=== PATIENT | female | born 1990 | race Caucasian/White ===

== ENCOUNTER 2022-02-04 12:01 | Outpatient (CLI) | payer BC, SELFPAY | END 2022-02-04 12:02 | disposition home or self-care (01) | LOC: NFLDREF 12:02 | PROVIDERS: Visit Provider Physician Assistant | DX: Z30.432 Encounter for removal of intrauterine contraceptive device (principal); E03.9 Hypothyroidism, unspecified; Z12.4 Encounter for screening for malignant neoplasm of cervix | CPT/HCPCS: 84443; 87624; 88175 ==

== ENCOUNTER 2022-08-31 14:57 | Outpatient (CLI) | payer OTHER, SELFPAY ==
--- NOTE | 2022-08-31 15:00 | CRLHL7_ITS ---
For Patients: As a result of the Century Cures Act, medical imaging exams and procedure reports are released immediately into your electronic medical record. You may view this report before your referring provider. If you have questions, please contact your health care provider. INDICATION: First trimester scan, establish dates. COMPARISON: None. TECHNIQUE: Real-time albarran-scale imaging of the pelvis was performed. FINDINGS: Sonographic imaging demonstrates a single living intrauterine gestation. The embryo demonstrates a regular cardiac rate measuring 143 beats per minute. The embryo`s crown-rump length measurement of 1.0 cm corresponds to a gestational age of 7 weeks 1 day with a sonographic due date of April 18, 2023. There is a normal-appearing yolk sac measuring 3 mm. There are no gross abnormalities noted within the embryo at this early state of development. The placenta has not yet developed. The gestational sac has a normal appearance. Questionable minimal perigestational hemorrhage along the left lateral aspect of the gestational sac measuring up to 9 mm. The amount of fluid within the sac appears appropriate for gestational age. The cervix is closed. The myometrium appears normal. The ovaries are of normal size. The right ovary measures 2.8 x 2.0 x 2.0 cm and contains a corpus luteum cyst of measuring 2.3 x 1.6 x 1.7 cm. The left ovary measures 2.7 x 1.2 x 1.2 cm. There are no suspicious fluid collections noted in the cul-de-sac. IMPRESSION: Normal first trimester OB ultrasound exam. Gestational age calculated at 7 weeks 1 day with a sonographic due date of April 18, 2023. Dictated by Braulio Chu MD @ 08/31/2022 5:53:20 PM (Electronically Signed)
== END 2022-08-31 14:58 | disposition home or self-care (01) ==
PROVIDERS: PCP Physician Assistant; Visit Provider Registered Nurse
DX: Z34.91 Encounter for supervision of normal pregnancy, unspecified, first trimester (principal); Z3A.08 8 weeks gestation of pregnancy
CPT/HCPCS: 76817; 84439; 84443; 86592; 86703; 86762; 86787; 86803; 86850; 86900; 86901; 87086; 87340; 87491; 87591

== ENCOUNTER 2022-08-31 16:54 | Outpatient (CLI) | payer OTHER, SELFPAY ==
[2022-08-31 20:35] LABS: Free T4 Free Thyroxine* 0.82 ng/dL (0.70-1.85)
[2022-08-31 20:50] LABS: Hepatitis B Surface Antigen* Negative (Negative)
[2022-08-31 21:00] LABS: HIV 1/2/P24 Combo Screen* Negative (Negative)
[2022-08-31 21:08] LABS: Hepatitis C Virus Antibody* Negative (Negative)
[2022-08-31 21:25] LABS: Chlamydia DNA Amplified* NOT DETECTED (No Detected); GC DNA Amplified* NOT DETECTED (No Detected)
[2022-09-02 23:11] LABS: Rapid Plasma Reagin (RPR) Non Reactive (Non Reactive)
[2022-09-03 00:15] LABS: Rubella Antibody IgG 74.5 IU/mL
== END 2022-08-31 16:55 | disposition home or self-care (01) ==
PROVIDERS: PCP Physician Assistant; Visit Provider Registered Nurse
DX: Z34.91 Encounter for supervision of normal pregnancy, unspecified, first trimester (principal); Z3A.08 8 weeks gestation of pregnancy
CPT/HCPCS: 84439; 84443; 86592; 86703; 86762; 86787; 86803; 86850; 86900; 86901; 87086; 87340; 87491; 87591

== ENCOUNTER 2023-01-27 08:38 | Outpatient (CLI) | payer OTHER, SELFPAY | END 2023-01-27 08:39 | disposition home or self-care (01) | PROVIDERS: PCP Physician Assistant; Visit Provider Obstetrics & Gynecology | DX: Z34.93 Encounter for supervision of normal pregnancy, unspecified, third trimester (principal); Z3A.29 29 weeks gestation of pregnancy | CPT/HCPCS: 84439; 84443; 86592 ==

== ENCOUNTER 2023-01-27 09:12 | Outpatient (CLI) | payer OTHER, SELFPAY ==
--- NOTE | 2023-01-27 09:15 | CRLHL7_ITS ---
For Patients: As a result of the Century Cures Act, medical imaging exams and procedure reports are released immediately into your electronic medical record. You may view this report before your referring provider. If you have questions, please contact your health care provider. INDICATION: Third trimester scan, evaluate growth. Follow-up placental location. COMPARISON: 11/30/2022 TECHNIQUE: Real time albarran scale imaging of the fetus was performed. FINDINGS: Sonographic imaging demonstrates a single living intrauterine gestation. Fetus demonstrates a regular cardiac rate of 148 beats per minute. Fetus has a vertex position. The placenta lies anteriorly without evidence of placenta previa. The edge of the placenta is located 6.0 cm from the internal cervical os. Amniotic fluid volume appears normal and there is a single deepest vertical pocket: 6.1 cm. The estimated weight is 1335gm which lies at the 63rd %. On the prior OB ultrasound exam dated 11/30/2022 the estimated weight was at the 86th%. BPD 90th percentile. HC 54th percentile. AC 55th percentile. FL 55th percentile. The HC/AC ratio measures 1.10 range (0.98-1.20). IMPRESSION: Anterior placenta located 6 cm from the internal cervical os. No previa. Sonographic gestational age 29 weeks 3 days and sonographic due date 04/11/2023. Sonographic age is 1 week ahead of the clinical age. Estimated weight 63rd percentile. Abdominal circumference 55th percentile. Dictated by Josse Jernigan MD @ 01/27/2023 11:45:18 AM (Electronically Signed)
== END 2023-01-27 09:13 | disposition home or self-care (01) ==
LOC: US 09:13
PROVIDERS: PCP Physician Assistant; Visit Provider Registered Nurse
DX: O44.43 Low lying placenta NOS or without hemorrhage, third trimester (principal); Z3A.29 29 weeks gestation of pregnancy
CPT/HCPCS: 76816; 84439; 84443

== ENCOUNTER 2023-02-02 08:34 | Outpatient (CLI) | payer OTHER, SELFPAY | END 2023-02-02 08:35 | disposition home or self-care (01) | LOC: NFLDREF 02-03 08:12 | PROVIDERS: PCP Physician Assistant; Referring Provider Physician Assistant; Visit Provider Obstetrics & Gynecology | DX: R73.09 Other abnormal glucose (principal) | CPT/HCPCS: 82951; 82952 ==

== ENCOUNTER 2023-03-22 16:06 | Outpatient (CLI) | payer OTHER, SELFPAY ==
[2023-03-23 17:58] LABS: Strep B DNA Probe POSITIVE (Negative)
[2023-03-27 21:35] LABS: Strep B Pen/Amox Allergy No
== END 2023-03-22 16:07 | disposition home or self-care (01) ==
LOC: NFLDREF 16:07
PROVIDERS: PCP Physician Assistant; Visit Provider Registered Nurse
DX: Z34.90 Encounter for supervision of normal pregnancy, unspecified, unspecified trimester (principal)
CPT/HCPCS: 87081; 87653

== ENCOUNTER 2023-04-17 15:57 | Inpatient (IN) | payer OTHER, SELFPAY ==
[2023-04-17 16:28] VITALS: BMI 32.0
[2023-04-17 16:48] VITALS: BP 118/72; PULSE 87; RESP 18; TEMP 37
[2023-04-17 16:49] VITALS: PULSE 99; O2SAT 98
[2023-04-17 17:03] LABS: Basophils Percent Auto 0.2 % (0.0-3.0); Eosinophils Percent Auto 0.9 % (0.0-7.0); Hematocrit 35.9 % (33.0-51.0); Hemoglobin* 12.2 gm/dL (12.0-16.0); Immature Granulocytes Pct Auto 0.3 %; Lymphocytes Percent Auto 17.5 % (20-44); Mean Corpuscular HGB Conc 34 gm/dL (32-36); Mean Corpuscular Hemoglobin 31 pg (26-34); Mean Corpuscular Volume 90 fL (80-100); Monocytes Percent Auto 5.6 % (0.0-11.0); Neutrophils Percent Auto 75.5 % (42.0-72.0); Platelet Count* 195 K/uL (140-440); RDW Coefficient of Variation % 12.8 % (11.5-15.5); White Blood Count* 11.67 K/uL (4.50-11.00)
[2023-04-17 17:04] LABS: Slide Review Reflex No
--- NOTE | 2023-04-17 17:29 | P.LDBA_ITS ---
Subjective History of Present Illness Time Seen by Provider: 17:29 Date Seen: 04/17/23 Narrative: Patient is being admitted to Labor and Delivery for elective IOL. She is a 32 year old at 39 6/7 weeks gestation. Her full history and physical was dictated by Dr. Connolly on 03/28/2023. Please see this for details. Specific Issues/Plans : James. Son: Sammy. Baby: Girl! GBS POSITIVE. Ampicillin in labor. 1. Hypothyroidism. 75 mcg levothyroxine. TSH and free T4 each trimester. * 08/31/2022: TSH 2.330, free T4 0.82 * 01/27/2023: TSH: 2.410, free T4 0.80 2. Low-lying placenta at 20 weeks. 1.6 cm from internal os. RESOLVED at 28wks. * F/U USN at 28 weeks01/27/23: Vtx. SDP 6.1cm. Placenta 6.1cm from the cervical os. EFW: 1335gm, 2#15oz., 63%. BPD 90%, HC 55%, AC 54%, FL 55%. 3. Elevated 1hr GTT 01/27/23: 152 * 3hr GTT: FBS elevated only, no GDM! Tdap: Given, 02/09/23 Flu: Completed COVID: Completed and boosted x2 including bivalent booster OB - Problem Based A/P Additional Plan (1) Elective induction of labor planned: Status: Acute Plan: 1. Cook catheter in place, wll plan to start IV oxytocin at midnight. Plan 1. Cook catheter in place, will plan to start IV oxytocin at midnight. 2. GBS positive, will start antibiotic prophylaxis, once we start IV Oxytocin. 3. Patient plans to get epidural for pain management. OB Exam Physical Exam Vital signs: Temp Pulse Resp BP Pulse Ox 98.6 F 87 18 118/72 98 04/17/23 16:48 04/17/23 16:48 04/17/23 16:48 04/17/23 16:48 04/17/23 16:49 Detailed Labor and Delivery Exam Patient Gravid: Yes Dilation (cm): 1 Effacement (%): 30 Cervix position: anterior Consistency: soft Tachysystole: No Contraction intensity: Mild Fetus (Single) Station: -3 Amniotic Membrane Status: intact Heart Rate Baseline: 125 Monitor Accelerations: Present Monitor Decelerations: None Prison Variability: Moderate (6-25)
[2023-04-17 19:19] VITALS: BP 122/83; PULSE 88; RESP 16; TEMP 37.1
[2023-04-17] MEDS: MORPHINE 10 MG/ML inj IM (20:15)
[2023-04-17] MEDS: hydrOXYzine pamoate 25 MG CAPSULE 100 MG PO (20:15)
[2023-04-18] VITALS (29 sets, daily range): BP systolic 96–134; BP diastolic 53–80; PULSE 76–95; RESP 16–20; TEMP 36.3–36.6; O2SAT 92–100
[2023-04-18] MEDS: LACTATED RINGERS 1000 ML 1,000 ML 125 ML IV (00:18)
[2023-04-18] MEDS: AMPICILLIN 2 GM in 0.9 % SODIUM CHLORIDE Mini-bag 100 ML IVPB (00:19)
[2023-04-18] MEDS: OXYTOCIN 30 unit/500 ML in NS 30 UNIT/500 ML BAG IVPB (00:29)
[2023-04-18] MEDS: AMPICILLIN 1 GM in 0.9 % SODIUM CHLORIDE Mini-bag 100 ML IVPB (04:16)
[2023-04-18] MEDS: LACTATED RINGERS 1000 ML 1,000 ML 999 ML IV (07:04)
[2023-04-18] MEDS: LIDOCAINE 1 % PF 30 ML INJECTION (07:26)
[2023-04-18] MEDS: IBUPROFEN 600 MG TABLET PO (08:10)
--- NOTE | 2023-04-18 08:11 | W.PM.VAGDEL1 ---
Procedure Delivery date: 04/18/23 Procedure Done: Global Intrapartal Events: Labor Induction Delivery augmentation: pitocin Delivery monitor: external FHT Route of delivery: Narrative: Alissa is a 32 year-old G3 P 90047 admitted on 04/17/2023 and 39w6d gestation for elective induction of labor. Cervical exam on admission was 1cm/30 % effaced/-3 station with membranes intact membrane in vertex presentation. Contractions were every 3 minutes. heart rate demonstrated baseline 120 bpm with moderate variability, + accelerations, - decelerations; a category I tracing. GBS +, received ampicillin antibiotics for prophylaxis starting at 0000 on 04/18/2023. Cook cath in 60cc/60cc @ 1745 and removed @ 0550 SROM occurred at 0706 on 04/18/2023 with clear fluid. Labor Analgesia: None. Patient reached complete and involuntary pushing prior to requested epidural placment. Pitocin: Yes. Titrating pitocin @ 0000 Labor onset: 04/18/2023 at 0500 Complete: 04/18/2023 at 0706 Pushin04/18/2023 at 0706 heart tones during second stage were Cat I At 0720 a viable female infant delivered in vertex Left OP presentation via spontaneous vaginal delivery. Infant was placed on maternal abdomen. Cord was clamped and cut after a 30-60 second delay. Nose and mouth were bulb suctioned. Infant weight: pending. 8 at 1 minute and 9 at 5 minutes. Shoulder dystocia: No. Nuchal cord: x1. Loose, easily reduced at perineum. Placenta delivered spontaneously and complete at 0724 with a 3 vessel cord. Complications: None. Mother and infant were stable after delivery. Laceration(s): 2nd degree perineal. After injection of 10 cc of 1% lidocaine without epi, the laceration was repaired with 2-0 chromic - continuous locking. Estimated blood loss: 100 mL. Sponge and needles counts are correct. Mother and infant were stable at the time of this note. Alissa is planning on .
[2023-04-18] MEDS: ACETAMINOPHEN 500 MG TABLET 1000 MG PO (12:14)
[2023-04-19 05:45] VITALS: BP 115/79; PULSE 81; RESP 18; TEMP 36.3; O2SAT 96
[2023-04-19 06:28] LABS: Hemoglobin* 11.9 gm/dL (12.0-16.0)
[2023-04-19 07:30] VITALS: BP 118/82; PULSE 80; RESP 18; TEMP 36.4; O2SAT 96
--- NOTE | 2023-04-19 07:59 | P.DS_ITS ---
DS: Providers Provider Date Seen: 04/19/23 Date of admission: 04/17/23 15:57 Primary care physician: Donnell Mandujano PA-C Admitting Clinician: Maria Garcia MD Attending Physician on discharge: Claribel Torres APRN, OSITO DS: Diagnosis Discharge Diagnosis (1) care and examination immediately after delivery: Status: Acute (2) Lactating mother: Status: Acute (3) Normal spontaneous vaginal delivery: Status: Acute Exam Narrative: Exam Narrative: GENERAL APPEARANCE:? normal affect, alert, no distress MOOD:? appropriate CHEST:? clear to auscultation HEART:? regular rate and rhythm ABDOMEN:? soft, non-tender the uterine fundus is at Umbilicus, Midline and is appropriate for the stage of recovery. PERINEUM:? mild edema of the perineum, there is a Perineal Laceration,?2nd degree, that is healing well. EXTREMITIES:? normal and no edema Const: Vital Signs, click to edit/add: Vital Signs - 24 hr 04/18/23 08:00 04/18/23 08:03 04/18/23 08:18 Temperature Pulse Rate 85 92 Pulse Rate [Blood Pressure Cuff] 85 Respiratory Rate 20 Blood Pressure 117/56 L 122/61 Blood Pressure [Le ft Arm] 117/56 L Pulse Oximetry Oxygen Delivery Me thod 04/18/23 08:18 04/18/23 08:30 04/18/23 08:33 Temperature Pulse Rate 89 Pulse Rate [Blood Pressure Cuff] 92 89 Respiratory Rate 20 18 Blood Pressure 120/61 Blood Pressure [Le ft Arm] 122/61 120/61 Pulse Oximetry Oxygen Delivery Nh thod 04/18/23 08:45 04/18/23 08:48 04/18/23 09:00 Temperature Pulse Rate 95 Pulse Rate [Blood Pressure Cuff] 95 81 Respiratory Rate 20 18 Blood Pressure 112/62 Blood Pressure [Le ft Arm] 112/62 117/68 Pulse Oximetry Oxygen Delivery Me thod 04/18/23 09:04 04/18/23 09:15 04/18/23 09:18 Temperature Pulse Rate 81 82 Pulse Rate [Blood Pressure Cuff] 82 Respiratory Rate 20 Blood Pressure 117/68 116/62 Blood Pressure [Le ft Arm] 116/62 Pulse Oximetry Oxygen Delivery Nh thod 04/18/23 09:30 04/18/23 09:30 04/18/23 12:15 Temperature 97.9 F 97.5 F L Pulse Rate 84 Pulse Rate [Blood Pressure Cuff] 84 86 Respiratory Rate 18 20 Blood Pressure 116/64 Blood Pressure [Le ft Arm] 116/64 123/76 Pulse Oximetry 96 Oxygen Delivery Me thod Room Air 04/18/23 16:30 04/18/23 20:41 04/18/23 23:40 Temperature 97.7 F 97.7 F 97.4 F L Pulse Rate Pulse Rate [Blood Pressure Cuff] 87 87 90 Respiratory Rate 18 18 16 Blood Pressure Blood Pressure [Le ft Arm] 106/69 119/73 114/80 Pulse Oximetry 96 96 95 Oxygen Delivery Me thod Room Air Room Air Room Air 04/19/23 05:45 Temperature 97.4 F L Pulse Rate Pulse Rate [Blood Pressure Cuff] 81 Respiratory Rate 18 Blood Pressure Blood Pressure [Le ft Arm] 115/79 Pulse Oximetry 96 Oxygen Delivery Me thod Room Air OB - DS: Summary Hospital Course Hospital Course: Alissa is a 32 y.o. G 3 P 2 who was admitted to [facility] & [facility] for elective induction of labor. ?She had an uncomplicated NVD. The patient feels well. ?The pain is well controlled with current medications. ?She has no new complaints. ?She is breast feeding and reports things are going well. the patient has done well.? Vitals have been stable.? She has remained afebrile.? Has a good appetite, is tolerating a general diet. ?She is voiding without difficulty.? She is passing gas and has not had a bowel movement.? She is ambulating and denies any dizziness.? Has small amount of rubra lochia. Problems: none plan: Discharge home with baby. Follow up in 2 weeks and 6 weeks. , may see if needed Hgb 11.8. Peripartum Data delivery method: Vaginal Laceration description: Perineal - 2nd Degree complications: none Gender: Female Infant Discharge Plan: Home Status at Discharge Functional status at discharge: independent ambulation Overall status at discharge: patient is progressing back to baseline Time Spent with Patient Time attestation: Total time spent providing and/or coordinating discharge services: Time spent: Less than 30 minutes Discharge Plan Discharge Disposition: Home, Self-Care Date of Admission: 04/17/23 15:57 Attending Provider on Discharge: Claribel Torres Primary Care Provider: Donnell Mandujano Condition: Stable Anticipated Discharge Date/Time: 04/19/23 12:00 Discharge Medications: New docusate sodium 100 mg Capsule 100 mg PO DAILY Qty: 90 0RF acetaminophen 500 mg Tablet 1,000 mg PO Q6H PRNQty: 0 0RF ibuprofen 600 mg Tablet 600 mg PO Q6H PRNQty: 60 0RF Continued loratadine [Claritin] 10 mg tablet 10 mg PO QDAY DHA 200 mg capsule PO albuterol sulfate 90 mcg/actuation HFA aerosol inhaler 2 puff inhalation Q6H PRN levothyroxine 75 mcg tablet 75 mcg PO DAILY Qty: 90 1RF Discharge Orders: Discharge Order (Routine); Ordered 04/19/23 Ordered By: Claribel Torres Patient Education: OB Over the Counter Medication Information, OB Vaginal/Breast Feeding Additional Instructions: Discharge instructions were reviewed with the patient including signs and symptoms of infection and home going medications Nothing vaginally for 6 weeks: no tampons or intercourse Off Work or School for 6 weeks 2-week visit: discuss feeding concerns, review control options and screen for anxiety/depression. 6-week visit for an annual exam. consultation services are available to all mothers and babies for the first year after delivery.? To make an appointment, please call [phone]. Activity Level: Activity as Tolerated Discharge Diet: Regular Follow Up Appointments: [facility] [Provider Group] Forms: [employer] Info Instructions
== END 2023-04-19 11:30 | disposition home or self-care (01) | DRG 807 ==
PROVIDERS: Obstetrics & Gynecology; Admitting Provider Obstetrics & Gynecology; PCP Physician Assistant; Visit Provider Obstetrics & Gynecology
DX: O70.1 Second degree perineal laceration during delivery (principal); Z37.0 Single live birth; Z3A.39 39 weeks gestation of pregnancy; O99.824 Streptococcus B carrier state complicating childbirth; E03.9 Hypothyroidism, unspecified
CPT/HCPCS: 36415; 59200; 85018; 85025; 86850; 86900; 86901; A9270; C1726; J0290; J2001; J2270; J2371; J7120

== ENCOUNTER 2023-05-30 10:39 | Outpatient (CLI) | payer OTHER, SELFPAY | END 2023-05-30 10:40 | disposition home or self-care (01) | PROVIDERS: PCP Physician Assistant; Visit Provider Advanced Practice Midwife | DX: Z39.2 Encounter for routine postpartum follow-up (principal); E03.9 Hypothyroidism, unspecified | CPT/HCPCS: 84443 ==

== ENCOUNTER 2024-01-02 10:56 | Outpatient (CLI) | payer OTHER, SELFPAY | END 2024-01-02 10:57 | disposition home or self-care (01) | LOC: KYNREF 10:56 | PROVIDERS: PCP Nurse Practitioner Family; Visit Provider Nurse Practitioner Family | DX: E03.9 Hypothyroidism, unspecified (principal) | CPT/HCPCS: 84443 ==

== ENCOUNTER 2024-01-25 15:54 | Outpatient (CLI) | payer OTHER, SELFPAY ==
--- OUTSIDE RECORDS SUMMARY | 2024-01-25 15:56 | XMS_ITS | Clinical Summary ---
Author Organization [facility] Address [place], [place] [address] Care Team Providers Care Outreach Associate Name Role Phone Ifrah Fields MD Primary Care Provider [phone] Allergies Active Allergy Reactions Criticality Noted Date Comments Hyw-Ebaeouvci-Xx-Acetaminophen Edema 02/01 Swelling in eyes Medications Medication Sig Dispensed Refills Start Date End Date Status ADVAIR DISKUS 100 MCG-50 MCG/DOSE FOR INHALATION inhale 1 puff by inhalation route 2 times per day morning and evening approximately 12 hours apart 0 02/02/2008 Active Active Problems Problem Noted Date Diagnosed Date Health supervision of other healthy or child receiving care 10/06/2006 HX OF CHICKENPOX 10/06/2006 Immunizations Name Administration Dates Next Due DTP 12/07/1996, 3,1991,1991, 1991 HIB PRP-D (ProHIBIT) 1991,1991,08/20 Hepatitis A (Adult) 12/07/2010 Hepatitis A (Peds) 02/25/2010 Hepatitis B (Peds) 02/13/2004,09/18/2003, 004 Human Papilloma Virus Vaccine 06/23/2010, 010,08/27/2009 Influenza A (H1N1), Inactivated 08/27/2009 Influenza, IIV3 (Age >=3 years) 04/23/20 09,05/07/2008,04/24/2007,05/06/2006, 04/22/2005,05/01/2002,04/27/2001,06/18/2000 MMR 02/23/2011,08/21/2003,10/03/1992 Meningococcal, Unspecified 02/25/2010 Oral Polio Vaccine 12/07/1996,01/14/1993, 992,1991 Td (Age >=7 Years) 08/21/2003 Tdap 12/17/2003 Typhoid, Unspecified 02/23/2011 Yellow Fever 02/23/2011 Family History Medical History Relation Name Comments Good Health Brother 2 X2 Good Health Father Good Health Mother Relation Name Status Comments Brother 1 Alive X2 Brother 2 Father Alive Mother Alive Social History Tobacco Use Types Packs/Day Years Used Date Smoking Tobacco: Never Alcohol Use Standard Drinks/Week Comments No 0 (1 standard drink = 0.6 oz pur e alcohol) Sex and Gender Information Value Date Recorded Sex Assigned at Not on file Gender Identity Not on file Sexual Orientation Not on file Obstetrics History Last Filed Vital Signs Vital Sign Reading Time Taken Comments Blood Pressure 110/70 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 Pulse 88 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 Temperature 37 ??C (98.6 ??F) 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 Respiratory Rate 20 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 Oxygen Saturation - - Inhaled Oxygen Concentration - - Weight 74.1 kg (163 lb 6.4 oz) 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 Height - - Body Mass Index - - Plan of Treatment Health Maintenance Due Date Last Done Comments Depression screening for age 12+ 2003 HIV for age 15-65 2006 BMI (ht and wt on same day) for age 18+ 2009 Hepatitis C screening for age 18-79 2009 Pap test for age 21-65 2012 Tetanus booster 12/16/2013 12/17/2003, 08/21/2003 COVID-19 vaccine series (2022- season) 2023 Influenza for age 9-49 03/04/2024 0, 04/23/2009, 05/07/2008, Additional history exists Tdap Completed 12/17/2003 Pneumococcal series for age 6-64 Aged Out No longer eligible based on patient's age to complete this topic Care Teams Outreach Associate Relationship Specialty Start Date End Date Ifrah Fields MD PCP - General Family Practice 02/17/16
--- NOTE | 2024-01-25 16:00 | CRLHL7_ITS ---
For Patients: As a result of the Century Cures Act, medical imaging exams and procedure reports are released immediately into your electronic medical record. You may view this report before your referring provider. If you have questions, please contact your health care provider. INDICATION: Iodine-deficiency related diffuse (endemic) goiter COMPARISON: none TECHNIQUE: Vogt scale and color Doppler images were acquired of the thyroid gland. FINDINGS: The thyroid gland demonstrates mildly heterogeneous echogenicity and has a smooth outer contour. The right lobe measures 5.1 x 1.5 x 1.8 cm and the left lobe measures 3.6 x 1.3 x 1.4 cm in size. Isthmus measures 2 millimeters. There are no suspicious masses or nodules. The color Doppler images demonstrate normal vascularity. There is no evidence of cervical lymphadenopathy or parathyroid mass. IMPRESSION: No thyroid nodule. Dictated by Josse Jernigan MD @ 01/27/2024 12:21:28 PM (Electronically Signed)
== END 2024-01-25 15:55 | disposition home or self-care (01) ==
LOC: US 15:54
PROVIDERS: PCP Nurse Practitioner Family; Visit Provider Nurse Practitioner Family
DX: E01.0 Iodine-deficiency related diffuse (endemic) goiter (principal)
CPT/HCPCS: 76536

== ENCOUNTER 2025-03-01 08:24 | Outpatient (CLI) | payer BC, SELFPAY ==
[2025-03-04 20:49] LABS: HPV Source Vaginal
[2025-03-07 11:39] LABS: Pap Test Digital Imaging Done
== END 2025-03-01 08:25 | disposition home or self-care (01) ==
PROVIDERS: PCP Nurse Practitioner Family; Visit Provider Nurse Practitioner Family
DX: Z00.00 Encounter for general adult medical examination without abnormal findings (principal); E03.9 Hypothyroidism, unspecified; N92.6 Irregular menstruation, unspecified; Z79.899 Other long term (current) drug therapy; Z79.3 Long term (current) use of hormonal contraceptives; Z12.4 Encounter for screening for malignant neoplasm of cervix; Z11.51 Encounter for screening for human papillomavirus (HPV); Z13.1 Encounter for screening for diabetes mellitus
CPT/HCPCS: 82306; 82728; 82947; 84443; 85025; 87624; 87625; 88141; 88142; 88175